=== PATIENT | female | born 1995 | race Caucasian/White ===

== ENCOUNTER 2018-12-04 21:10 | Outpatient (CLI) | payer OTHER ==
--- NOTE | 2018-12-04 23:26 | Ultrasound Report ---
Reason: TEST POSITIVE Procedure Date: 12/04/2018 Accession Number: [id number] / [id number] Procedure: US - OB First Trimester CPT Code: FULL RESULT: EXAM: FIRST TRIMESTER OBSTETRIC ULTRASOUND (Less than 11 weeks) EXAM DATE: 12/04/2018 09:37 PM. CLINICAL HISTORY: test positive. LMP: 10/06/2018, 8 weeks 3 days. COMPARISONS: None. TECHNIQUE: Transabdominal and transvaginal ultrasound examination with static image documentation. FINDINGS: Gestational Sac: No definite intrauterine or extrauterine seen. Tiny grossly 3 mm cystic focus within the endometrial canal is indeterminate for a very early gestational sac versus minimal fluid. No yolk sac or pole seen. Placenta: Not visible at this gestational age. Amniotic fluid: Not accurately assessed at this gestational age. Uterus: Unremarkable anteverted appearance. Cervix: Unremarkable. Right Ovary: Volume 4 cc. Normal echotexture and blood flow. Left Ovary: Volume 8 cc. Normal echotexture and blood flow. Free Fluid: None. Other: None. IMPRESSION: No intrauterine or extrauterine seen. Clinical and ultrasound follow-up suggested to ensure viability of and to entirely exclude ectopic. RADIA
== END 2018-12-04 21:11 | disposition home or self-care (01) ==
LOC: DI 21:10
PROVIDERS: ATTEND Nurse Practitioner Obstetrics & Gynecology
DX: Z32.01 Encounter for pregnancy test, result positive (principal); O46.91 Antepartum hemorrhage, unspecified, first trimester
CPT/HCPCS: 36415; 76801; 76817; 84702; 86900; 86901

== ENCOUNTER 2018-12-04 22:13 | Outpatient (CLI) | payer OTHER | END 2018-12-04 22:14 | disposition home or self-care (01) | LOC: LAB 22:13 | PROVIDERS: ATTEND Obstetrics & Gynecology | DX: O46.91 Antepartum hemorrhage, unspecified, first trimester (principal) | CPT/HCPCS: 36415; 84702; 86900; 86901 ==

== ENCOUNTER 2018-12-06 14:39 | Outpatient (CLI) | payer OTHER | END 2018-12-06 14:40 | disposition home or self-care (01) | LOC: LAB 14:39 | PROVIDERS: ATTEND Obstetrics & Gynecology | DX: O46.91 Antepartum hemorrhage, unspecified, first trimester (principal) | CPT/HCPCS: 36415; 84702 ==

== ENCOUNTER 2018-12-12 09:29 | Outpatient (CLI) | payer OTHER | END 2018-12-12 09:30 | disposition home or self-care (01) | LOC: LAB 09:29 | PROVIDERS: ATTEND Obstetrics & Gynecology | DX: O02.1 Missed abortion (principal) | CPT/HCPCS: 36415; 84702 ==

== ENCOUNTER 2019-02-26 18:50 | Outpatient (CLI) | payer OTHER ==
--- NOTE | 2019-02-27 12:13 | Ultrasound Report ---
Reason: TEST POSITIVE Procedure Date: 02/26/2019 Accession Number: [id number] / [id number] Procedure: US - OB First Trimester CPT Code: FULL RESULT: EXAM: FIRST TRIMESTER OBSTETRIC ULTRASOUND (Less than 11 weeks) EXAM DATE: 02/26/2019 06:57 PM. CLINICAL HISTORY: test positive. LMP: 01/12/2019. COMPARISONS: OB FIRST TRIMESTER 12/04/2018 9:37 PM. TECHNIQUE: Transabdominal and transvaginal ultrasound examination with static image documentation. CLINICAL DATES: EGA 6 weeks 3 days with BENITO 10/19/2019 based on LMP of 01/12/2019. ASSESSMENT: Gestational Sac: Single intrauterine. Mean gestational sac diameter: 7.3 mm = 5 weeks 3 days with an BENITO of 10/26/2019. Embryo: None detected. Cardiac activity: None detected. Yolk sac: 2.2 mm. Amniotic fluid: Not applicable. Early placenta: Not applicable. Other: No perigestational fluid collection demonstrated. MATERNAL STRUCTURES: Uterus: Anteverted. Unremarkable. Cervix: Closed. Right Ovary/Adnexa: The ovary measures 3.8 x 1.6 x 2.2 cm, volume 7 cc. 1.6 x 1.9 x 1.4 Cm complex right ovarian cyst with debris and mild peripheral flow. No mural nodules or thickened septations. Left Ovary/Adnexa: The ovary measures 4.0 x 1.6 x 1.6 cm, volume 5.3 cc. Unremarkable. Free Fluid: None. Other: None. IMPRESSION: 1. Single early intrauterine at EGA 5 weeks 3 days with BENITO 10/26/2019 based on mean sac diameter, which is concordant with clinical dates. Yolk sac identified. No pole seen. 2. Assigned dating is BENITO 10/19/2019 based on LMP. 3. No complications such as a subchorionic hemorrhage or adnexal mass lesion. 1.6 cm right ovarian corpus luteum. Otherwise, both ovaries and adnexa are normal. RADIA
== END 2019-02-26 18:51 | disposition home or self-care (01) ==
LOC: DI 18:50
PROVIDERS: ATTEND Obstetrics & Gynecology
DX: Z32.01 Encounter for pregnancy test, result positive (principal)
CPT/HCPCS: 76801; 76817

== ENCOUNTER 2019-03-04 18:48 | Outpatient (CLI) | payer OTHER | END 2019-03-04 18:49 | disposition home or self-care (01) | LOC: LAB 18:48 | PROVIDERS: ATTEND Obstetrics & Gynecology | DX: Z32.01 Encounter for pregnancy test, result positive (principal) | CPT/HCPCS: 84702 ==

== ENCOUNTER 2019-03-11 19:21 | Outpatient (CLI) | payer OTHER ==
--- NOTE | 2019-03-13 08:26 | Ultrasound Report ---
Reason: TEST POSITIVE Procedure Date: 03/11/2019 Accession Number: [id number] / [id number] Procedure: US - OB Transvaginal CPT Code: FULL RESULT: EXAM: FIRST TRIMESTER OBSTETRIC ULTRASOUND (Less than 11 weeks) EXAM DATE: 03/11/2019 07:59 PM. CLINICAL HISTORY: test positive. No pole identified on initial first trimester ultrasound. LMP: 01/12/2019. COMPARISONS: OB FIRST TRIMESTER 02/26/2019 6:57 PM. TECHNIQUE: Transabdominal and transvaginal ultrasound examination with static image documentation. CLINICAL DATES: EGA 7 weeks 2 days with BENITO 10/26/2019 based on prior ultrasound. ASSESSMENT: Gestational Sac: Single intrauterine. Mean gestational sac diameter: 23 mm = 7 weeks 2 days. Embryo: CRL (crown-rump length) 11 mm = 7 weeks 1 day. Cardiac activity: 143 beats per minute. Yolk sac: 6 mm. Amniotic fluid: Not accurately assessed at this gestational age. Early placenta: Not visible at this gestational age. Other: The perigestational fluid collection superior to the gestational sac is measured at 1.9 x 0.3 cm with a separate perigestational fluid collection inferior to the gestational sac measuring 0.9 x 0.4 cm. MATERNAL STRUCTURES: Uterus: Anteverted. Unremarkable. Cervix: Closed. Right Ovary/Adnexa: The ovary measures 3.6 x 1.8 x 2.8 cm, volume 9.4 cc. Corpus luteum is identified, 2.3 x 1.4 x 1.7 cm. Left Ovary/Adnexa: The ovary measures 2.9 x 1.5 x 2.6 cm, volume 5.6 cc. Unremarkable. Free Fluid: None. Other: None. IMPRESSION: 1. Single viable intrauterine at EGA 7 weeks 1 day with BENITO 10/27/2019 based on crown-rump length, which is discordant with LMP. 2. Assigned dating is BENITO 7 weeks 1 day based on current ultrasound. 3. Perigestational fluid collections, as described. RADIA
--- NOTE | 2019-03-13 08:38 | Ultrasound Report ---
Reason: TEST POSITIVE Procedure Date: 03/11/2019 Accession Number: [id number] / [id number] Procedure: US - OB First Trimester CPT Code: FULL RESULT: This report: ( acc # [id number]) please link report with acc # [id number]
== END 2019-03-11 19:22 | disposition home or self-care (01) ==
LOC: DI 19:21
PROVIDERS: ATTEND Obstetrics & Gynecology
DX: Z32.01 Encounter for pregnancy test, result positive (principal)
CPT/HCPCS: 76801; 76817

== ENCOUNTER 2019-03-12 14:03 | Outpatient (CLI) | payer OTHER ==
[2019-03-12 14:35] LABS: BASOPHILS % (AUTO) 0.4 %; EOSINOPHILS # (AUTO) 0.1 10^3/uL (0.0-0.7); EOSINOPHILS % (AUTO) 1.6 %; HGB - HEMOGLOBIN 13.1 g/dL (12.0-16.0); LYMPHOCYTES # (AUTO) 3.3 10^3/uL (1.5-3.5); LYMPHOCYTES % (AUTO) 36.6 %; MEAN CORPUSCULAR HEMOGLOBIN 28.1 pg (27.0-31.0); MEAN CORPUSCULAR VOLUME 82.4 fL (81.0-99.0); MEAN PLATELET VOLUME 9.2 fL (7.9-10.8); MONOCYTES # (AUTO) 0.7 10^3/uL (0.0-1.0); MONOCYTES % (AUTO) 7.7 %; NEUTROPHILS # (AUTO) 4.8 10^3/uL (1.5-6.6); NEUTROPHILS % (AUTO) 53.5 %; PLT - PLATELET COUNT 269 10^3/uL (130-450); RED BLOOD COUNT 4.67 10^6/uL (4.20-5.40); RED CELL DISTRIBUTION WIDTH 13.1 % (12.0-15.0); WHITE BLOOD COUNT 8.9 x10^3/uL (4.8-10.8)
[2019-03-13 08:37] LABS: HEPATITIS B SURFACE ANTIGEN NON-REACTIVE (NON-REACTIVE)
[2019-03-13 10:41] LABS: HIV AG/AB 4TH GEN NON-REACTIVE (NON-REACTIVE)
== END 2019-03-12 14:04 | disposition home or self-care (01) ==
LOC: LAB 14:03
PROVIDERS: ATTEND Nurse Practitioner Obstetrics & Gynecology
DX: Z36.89 Encounter for other specified antenatal screening (principal)
CPT/HCPCS: 36415; 81599; 85025; 85610; 86762; 86850; 86900; 86901; 87340; 87389

== ENCOUNTER 2019-03-12 15:00 | Outpatient (CLI) | payer OTHER ==
[2019-03-12 15:02] LABS: MUDS CUTOFF CONCENTRATIONS CUTOFF CONC BELOW:
[2019-03-12 15:52] LABS: AMPHETAMINE SCREEN,URINE NEGATIVE (NEGATIVE); BENZODIAZEPINES SCREEN, URINE NEGATIVE (NEGATIVE); COCAINE SCREEN URINE NEGATIVE (NEGATIVE); METHADONE SCREEN, URINE NEGATIVE (NEGATIVE); METHAMPHETAMINES SCREEN, URINE NEGATIVE (NEGATIVE); OPIATE SCREEN, URINE NEGATIVE (NEGATIVE); OXYCODONE SCREEN, URINE NEGATIVE (NEGATIVE); PROPOXYPHENE SCREEN, URINE NEGATIVE (NEGATIVE); TRICYCLIC ANTIDEPRESSANT,URINE NEGATIVE (NEGATIVE)
== END 2019-03-12 23:59 | disposition home or self-care (01) ==
LOC: LAB.R 15:00
PROVIDERS: ATTEND Nurse Practitioner Obstetrics & Gynecology
DX: Z36.89 Encounter for other specified antenatal screening (principal)
CPT/HCPCS: 80306

== ENCOUNTER 2019-05-07 16:26 | Outpatient (CLI) | payer OTHER | END 2019-05-07 16:27 | disposition home or self-care (01) | LOC: LAB 16:26 | PROVIDERS: ATTEND Nurse Practitioner Obstetrics & Gynecology | DX: Z36.89 Encounter for other specified antenatal screening (principal) | CPT/HCPCS: 36415; 81511; 81599 ==

== ENCOUNTER 2019-07-02 08:33 | Outpatient (CLI) | payer OTHER ==
--- NOTE | 2019-07-08 08:24 | Ultrasound Report ---
Reason: SCREENING, F/U TO FAS Procedure Date: 07/02/2019 Accession Number: [id number] / [id number] Procedure: US - OB F/U or Repeat CPT Code: Final Report FULL RESULT: EXAM: FOLLOW-UP OBSTETRICAL ULTRASOUND EXAM DATE: 07/02/2019 09:44 AM. CLINICAL HISTORY: SCREENING, F/U TO FAS. Nose lips, nuchal fold COMPARISON: OB F/U OR REPEAT 07/02/2019 8:42 AM OB DETAILED EVAL 05/31/2019 2:33 PM. TECHNIQUE: Real-time sonographic evaluation of the fetus performed by the liberal arts dean. Additional transvaginal imaging to more accurately evaluate cervical length/placental position/etc. Multiple customer operations representative static images were saved for review. DATING: Established EGA 24 weeks 3 days with BENITO 10/19/2019 based on LMP. EGA 23 weeks 2 days with BENITO 10/27/2019 based on ultrasound 03/11/2019. EGA 23 weeks 3 days with BENITO 10/26/2019 based on the current ultrasound. GENERAL EVALUATION Martinez . Cardiac activity: 165 bpm. movement: Visualized. Presentation: Breech Placenta: Posterior position. Amniotic fluid: Normal. ARAVIND cm. MVP cm. Cord origin is 1.6 cm from placental edge BIOMETRY Bi-Parietal Diameter (BPD): 5.4 cm, 22 weeks 3 days Head Circumference (HC): 21.3 cm, 23 weeks 3 days Abdominal Circumference (AC): 19.8 cm, 24 weeks 3 days Femur Length (FL): 4.1 cm, 23 weeks 3 days Estimated Weight: 634 g, 69.7 percentile for 23 weeks 2 days. ANATOMY face, nose lips, feet normal. Nuchal fold, open hands not evaluated IMPRESSION: 1. Martinez live intrauterine with gestational age 23 weeks 2 days based on 03/11/2019 ultrasound. 2. Estimated weight is within expected limits for assigned dating. 3. face, nose lips, feet normal. Nuchal fold, open hands not evaluated RADIA
== END 2019-07-02 08:34 | disposition home or self-care (01) ==
LOC: DI 08:33
PROVIDERS: ATTEND Nurse Practitioner Obstetrics & Gynecology
DX: Z36.89 Encounter for other specified antenatal screening (principal)
CPT/HCPCS: 76816

== ENCOUNTER 2019-07-29 17:10 | Outpatient (CLI) | payer OTHER | END 2019-07-29 17:11 | disposition home or self-care (01) | LOC: LAB 17:10 | PROVIDERS: ATTEND Nurse Practitioner Obstetrics & Gynecology | DX: Z36.89 Encounter for other specified antenatal screening (principal) | CPT/HCPCS: 36415; 82950 ==

== ENCOUNTER 2019-08-09 08:04 | Outpatient (CLI) | payer OTHER | END 2019-08-09 08:05 | disposition home or self-care (01) | LOC: LAB 08:04 | PROVIDERS: ATTEND Nurse Practitioner Obstetrics & Gynecology | DX: O99.810 Abnormal glucose complicating pregnancy (principal); Z3A.00 Weeks of gestation of pregnancy not specified | CPT/HCPCS: 36415; 82951; 82952 ==

== ENCOUNTER 2019-08-09 12:28 | Outpatient (CLI) | payer OTHER ==
--- NOTE | 2019-08-12 14:19 | Ultrasound Report ---
Reason: SUPERVISION OF , SCREENING Procedure Date: 08/09/2019 Accession Number: [id number] / [id number] Procedure: US - OB F/U or Repeat CPT Code: Final Report FULL RESULT: EXAM: FOLLOW-UP OBSTETRICAL ULTRASOUND. EXAM DATE: 08/09/2019 02:08 PM. CLINICAL HISTORY: Supervision of , screening. COMPARISON: OB F/U OR REPEAT 07/02/2019 8:42 AM. TECHNIQUE: Real-time sonographic evaluation of the fetus performed by the rubber production machine operator. Multiple parts sales representative static images were saved for review. DATING: Established EGA 28 weeks 5 days with BENITO 10/27/2019 based on working due date. GENERAL EVALUATION Martinez . Cardiac activity: 132 bpm. movement: Visualized. Presentation: Breech. Placenta: Posterior position. Amniotic fluid: Normal. ARAVIND 13 cm. MVP 4.5 cm. ANATOMY Nuchal fold is not evaluated at this gestational age. MATERNAL STRUCTURES Cervix is not well seen on this examination, previously noted to be normal. IMPRESSION: 1. Martinez live intrauterine with gestational age 28 weeks 5 days based on working due date. 2. hands are not well seen. RADIA
== END 2019-08-09 12:29 | disposition home or self-care (01) ==
LOC: DI 12:28
PROVIDERS: ATTEND Nurse Practitioner Obstetrics & Gynecology
DX: Z34.92 Encounter for supervision of normal pregnancy, unspecified, second trimester (principal); Z36.89 Encounter for other specified antenatal screening; O99.810 Abnormal glucose complicating pregnancy; Z3A.28 28 weeks gestation of pregnancy
CPT/HCPCS: 36415; 76816; 82951; 82952

== ENCOUNTER 2019-10-01 08:00 | Outpatient (CLI) | payer OTHER ==
[2019-10-02 22:09] LABS: TRICHOMONAS VAGINALIS DNA NEGATIVE (NEGATIVE)
== END 2019-10-01 23:59 | disposition home or self-care (01) ==
LOC: LAB.R 08:00
PROVIDERS: ATTEND Nurse Practitioner Obstetrics & Gynecology
DX: Z36.85 Encounter for antenatal screening for Streptococcus B (principal); Z36.89 Encounter for other specified antenatal screening
CPT/HCPCS: 87491; 87591; 87661; 87797

== ENCOUNTER 2019-10-30 18:03 | Inpatient (IN) | payer OTHER ==
[2019-10-30] MEDS ORDERED: ONDANSETRON 4 MG/2 ML VIAL IVP PRN (18:08)
[2019-10-30] MEDS ORDERED: SODIUM CHLORIDE FLUSH 0.9% 10 ML SYRINGE IVP PRN (18:08)
[2019-10-30] MEDS: miSOPROStoL 100 MCG TABLET BC SCH (19:00)
[2019-10-30 19:20] LABS: BASOPHILS % (AUTO) 0.3 %; EOSINOPHILS # (AUTO) 0.1 10^3/uL (0.0-0.7); EOSINOPHILS % (AUTO) 0.5 %; HGB - HEMOGLOBIN 12.3 g/dL (12.0-16.0); LYMPHOCYTES # (AUTO) 2.9 10^3/uL (1.5-3.5); LYMPHOCYTES % (AUTO) 27.6 %; MEAN CORPUSCULAR HEMOGLOBIN 29.4 pg (27.0-31.0); MEAN CORPUSCULAR HGB CONC 34.7 g/dL (32.0-36.0); MEAN CORPUSCULAR VOLUME 84.7 fL (81.0-99.0); MEAN PLATELET VOLUME 11.4 fL (7.9-10.8); MONOCYTES # (AUTO) 0.7 10^3/uL (0.0-1.0); NEUTROPHILS # (AUTO) 6.6 10^3/uL (1.5-6.6); NEUTROPHILS % (AUTO) 64.3 %; PLT - PLATELET COUNT 184 10^3/uL (130-450); RED BLOOD COUNT 4.18 10^6/uL (4.20-5.40); RED CELL DISTRIBUTION WIDTH 14.1 % (12.0-15.0); WHITE BLOOD COUNT 10.3 x10^3/uL (4.8-10.8)
[2019-10-30] MEDS ORDERED: ZOLPIDEM 5 MG TABLET PO PRN (20:17)
[2019-10-31] MEDS ORDERED: SODIUM CHLORIDE FLUSH 0.9% 10 ML SYRINGE IVP SCH (01:00)
[2019-10-31] MEDS: miSOPROStoL 100 MCG TABLET BC SCH ×4 (01:05→14:13)
--- NOTE | 2019-10-31 07:11 | HISTORY & PHYSICAL EXAMINATION ---
Admit History - Visit Reason Visit Reason: Other - : 3 Parity: 0 Premature: 0 Ectopic: 0 : 2 Care: positive: [facility] Risk/History: positive: None Complications This : positive: None Smoking Status: Never smoker - Mother's Labs Mother's Blood Type: positive: O Mother's RH: positive: Positive GBS: positive: Group B Step Negative Rubella Status: positive: Immune Meds/Allgy - Allergies Allergies/Adverse Reactions: Allergies Allergy/AdvReac Type Severity Reaction Status Date / Time No Known Drug Allergies Allergy Verified 10/30/19 18:39 Review of Systems - Constitutional Constitutional: denies: Fever, Chills, Malaise - Eyes Eyes: denies: Blurred vision, Spots in vision, Dipolpia - Cardiovascular Cariovascular: reports: Edema. denies: Irregular heart rate, Palpitations, Chest pain - Respiratory Respiratory: denies: SOB at rest - Gastrointestinal Gastrointestinal: denies: Change in bowel habits - Integumentary Integumentary: denies: Rash, Pruritis - Neurological Neurological: denies: Headache Physical - Abdominal Exam Contraction Frequency (min/apart): 2-4 Contraction Intensity: positive: Mild Uterine Resting Tone: positive: Soft - Monitoring Heart Rate Baseline: 135 Strip Review: positive: Category I - Presentation Presentation: positive: Vertex - Vaginal Exam Membranes: positive: Membranes intact Dilation (in cm): 2-3 Effacement (%): 50 Station: positive: -3 Cervical Position: positive: Posterior - Speculum Exam Speculum Exam Performed: positive: No Plan for Labor - Plan For Labor I expect patient to be DC'd or transferred within 96 hours.: Yes Plan for Labor: 10/30/2019 HPI: Halina presents 10/30/2019 @ 1800 for elective induction of labor at 40.3wks gestation by 5.3wk U/S. She denies vaginal bleeding or leakage of fluid and reports +FM. She reports occasional cramping however nothing consistent or overly uncomfortable. She has been a patient of [facility] through the duration of her and her care has been consistent and her has remained uncomplicated. She will be placed in observation status on [facility] for pre-induction cervical ripening with misoprostol. Dating criteria: LMP 01/12/2019-unsure Initial U/S: 02/26/2019 @ 5.3wks gestation by ultrasound. Unsure LMP. Serial exams: agree OBHx: G1: 2017 termination at 8wks G2: 2019 SAB at 5wks Medications: PNV Allergies: Tide (critical) PMHx: no significant Surgical Hx: tonsillectomy (2001), D&C 2017 Social Hx: Never smoker. No ETOH or IVDA. active duty - Family Hx: depression - mother, father, sister; anxiety - mother, father; breast cancer - sister; uterine cancer - mother; PCOS - sister; HTN - mother labs: O pos/Rubella immune Gentic testing: Quad screen negative Glucola elevated 144- 3 hour GTT 88;131;105;98-WNL GBS & GC/CT NEG x 3 Immunizations: TDAP 07/30/2019 Ultrasounds: Initial U/S: 02/26/2019 @ 5.3wks gestation by ultrasound. Unsure LMP. FAS: WNL with the exception of poor visualization of face, nuchal fold, and feet, 3VC. Posterior placenta, no previa. Size c/w dating. F/u 07/02/2019 WNL - continued poor visualization of nuchal fold and open hands. 08/09/19 f/u WNL with continued poor visualization open hands - pt declines further f/u Physical Exam: Normocephalic, atraumatic Heart RRR w/o M/G/R Lungs CTAB Abdomen gravid, soft, nontender EFW 3200g SVE 2-3/50/-3, vertex. Intact membranes Contractions intermittent - inconsistent Bilateral LE's trace edema Assessment: 23yo @ 40.3wks gestation by 5.3wk U/S GBS neg Elective IOL Plan: Place in observation status on [facility] until active, SROM/AROM, epidural, initiation of pitocin Pre-induction cervical ripening with misoprostol 50mcg BC q 4 hours Continuous monitoring Jacuzzi PRN. Nitrous oxide. Epidural PRN. Anticipate
--- NOTE | 2019-10-31 07:28 | PROVIDER PROGRESS NOTE ---
Labor Progress Note - Uterine Monitoring Uterine Monitoring Mode: positive: External toco Contraction Frequency (min/apart): intermittent/inconsistent Contraction Intensity: positive: Mild Uterine Resting Tone: positive: Soft - Monitoring Monitor Mode: positive: External ultrasound Heart Rate Baseline: 135 Heart Rate Variability: positive: Moderate (6-25 bmp) Accelerations: positive: Present, 15x15 Decelerations: positive: None Strip Review: positive: Category I - Vaginal Exam Dilation (in cm): 2-3 Effacement (%): 50 Station: -3 Cervical Position: Posterior - Labor Progress Note Labor Progress Note/Additional Text: S: Able to sleep some during the night. Experiencing some lower abdominal cramping but overall denies significant discomfort. Mother in law supportive at the bedside. O: FHR baseline 135, moderate variability, + accels, no decels SVE 2-3/50/-3, vertex, posterior, intact membranes Contractions palpate mild, intermittent/inconsistent A: 23yo @ 40.4wks gestation by 5.3wk U/S FHR Category I GBS neg S/p 3 doses of 50mcg BC misoprostol P: Continue pre-induction cervical ripening with 50mcg BC misoprostol Continuous monitoring Jacuzzi PRN. Nitrous oxide PRN. Epidural per maternal request Anticipate . Hand-off to construction equipment mechanic helper physician @ 0800.
[2019-10-31] MEDS ORDERED: fentaNYL 250 MCG/5 ML VIAL IVP ONE (07:45)
[2019-10-31] MEDS ORDERED: ACETAMINOPHEN 1,000 MG/100 ML 100 ML IV ONE ×2 (07:45→20:44)
[2019-10-31] MEDS ORDERED: PROPOFOL 200 MG/20 ML VIAL IVP ONE (07:45)
[2019-10-31] MEDS ORDERED: DEXAMETHASONE 4 MG/ML VIAL IVP ONE (07:45)
[2019-10-31] MEDS ORDERED: ESMOLOL 100 MG/10 ML VIAL IVP ONE (07:45)
[2019-10-31] MEDS ORDERED: ONDANSETRON 4 MG/2 ML VIAL IVP ONE ×2 (07:45→19:02)
[2019-10-31] MEDS ORDERED: SUCCINYLCHOLINE 200 MG/10 ML VIAL IVP ONE (07:45)
[2019-10-31] MEDS ORDERED: ePHEDrine 50 MG/ML VIAL IVP ONE ×2 (07:45→19:02)
[2019-10-31] MEDS ORDERED: HYDROmorphone 1 MG/ML CARPUJECT IVP ONE (07:45)
[2019-10-31] MEDS ORDERED: MIDAZOLAM 2 MG/2 ML VIAL IVP ONE (07:45)
[2019-10-31] MEDS ORDERED: LACTATED RINGERS 500 ML IV ONE ×6 (11:36→17:38)
[2019-10-31] MEDS ORDERED: fentaNYL 100 MCG/2 ML VIAL IVP PRN (13:49)
[2019-10-31] MEDS ORDERED: LACTATED RINGERS 1,000 ML IV ONE ×4 (14:08→20:26)
[2019-10-31] MEDS ORDERED: ROPIVACAINE 0.2% 200 MG/100 ML BAG EP ONE (14:28)
--- NOTE | 2019-10-31 15:10 | ANESTHESIA ---
Pre-Anesthesia VS, & Labs - Diagnosis labor pain - Procedure Continuous labor epidural Vital Signs: Continuous labor epidural Height 5 ft 2 in Weight (kg) 88.451 kg - NPO Other - Is Patient ?: Yes - Lab Results Current Lab Results: Laboratory Tests 10/30/19 18:30: WBC 10.3, RBC 4.18 L, Hgb 12.3, Hct 35.4 L, MCV 84.7, MCH 29.4, MCHC 34.7, RDW 14.1, Plt Count 184, MPV 11.4 H, Neut # (Auto) 6.6, Lymph # (Auto) 2.9, Falls # (Auto) 0.7, Eos # (Auto) 0.1, Baso # (Auto) 0.0, Absolute Nucleated RBC 0.00, Nucleated RBC % 0.0 Lab results reviewed: Yes Fish Bones: 10/30/19 18:30 Home Medications and Allergies Active Medications Fentanyl (Fentanyl) 50 mcg IVP Q1HR PRN PRN Reason: PAIN Last Admin: 10/31/19 14:12 Dose: 50 mcg Misoprostol (Cytotec) 50 mcg BC Q4HR MARYCARMEN Last Admin: 10/31/19 14:13 Dose: Not Given Ondansetron HCl (Zofran Inj) 4 mg IVP Q4HR PRN PRN Reason: Nausea / Vomiting Sodium Chloride (Normal Saline Flush 0.9%) 10 ml IVP 0100,0900,1700 MARYCARMEN Sodium Chloride (Normal Saline Flush 0.9%) 10 ml IVP PRN PRN PRN Reason: NEEDED PER PROVIDER ORDERS Last Admin: 10/30/19 18:30 Dose: 10 ml Zolpidem Tartrate (Ambien) 5 mg PO QPM PRN PRN Reason: Insomnia Last Admin: 10/30/19 23:53 Dose: 5 mg Allergies/Adverse Reactions: Allergies Allergy/AdvReac Type Severity Reaction Status Date / Time No Known Drug Allergies Allergy Verified 10/30/19 18:39 Anes History & Medical History - Anesthetic History Anesthesia Complications: reports: No previous complications Family history of Anesthesia Complications: Denies Family history of Malignant Hyperthermia: Denies - Medical History Cardiovascular: reports: None Pulmonary: reports: None Gastrointestinal: reports: None Urinary: reports: None Neuro: reports: None Musculoskeletal: reports: None Endocrine/Autoimmune: reports: None Blood Disorders: reports: None Skin: reports: None Smoking Status: Never smoker Psychosocial: reports: No issues indicated - Obstetrical History : 3 Parity: 0 Events: positive: None Complications: positive: None Exam General: Oriented x3, Moderate distress Dental: WNL Mouth Opening: Greater than 4 Fingerbreadths Neck Mobility: Normal Mallampati classification: II Plan Anesthesia Type: Epidural Consent for Procedure(s) Verified and Reviewed: Yes Code Status: Attempt Resuscitation ASA classification: 2-Mild systemic disease Is this case an emergency?: Yes
[2019-10-31] MEDS ORDERED: ROPIVACAINE 0.2% 200 MG/100 ML BAG EP PRN (15:13)
[2019-10-31] MEDS ORDERED: NALOXONE 0.4 MG/ML VIAL IVP PRN (15:13)
[2019-10-31] MEDS ORDERED: NALBUPHINE 10 MG/ML AMP IVP PRN ×2 (15:13)
[2019-10-31] MEDS ORDERED: ONDANSETRON 4 MG/2 ML VIAL IVP PRN ×2 (15:13)
[2019-10-31] MEDS ORDERED: ePHEDrine 50 MG/ML VIAL IVP PRN (15:13)
[2019-10-31] MEDS ORDERED: METOCLOPRAMIDE 10 MG/2 ML VIAL IVP PRN (15:13)
[2019-10-31] MEDS ORDERED: diphenhydrAMINE INJ 50 MG/ML VIAL IVP PRN ×2 (15:13)
[2019-10-31] MEDS ORDERED: KETOROLAC 30 MG/ML VIAL IVP ONE (15:13)
--- NOTE | 2019-10-31 16:31 | PROVIDER PROGRESS NOTE ---
Labor Progress Note - Uterine Monitoring Uterine Monitoring Mode: positive: External toco : 2-3 Contraction Intensity: positive: Strong Uterine Resting Tone: positive: Soft - Monitoring Heart Rate Baseline: 155 Heart Rate Variability: positive: Minimal (0-5 bpm) Accelerations: positive: Present, 15x15 Decelerations: positive: Early Strip Review: positive: Category II - Vaginal Exam Dilation (in cm): 5 Effacement (%): 90 Station: -1 Cervical Position: Midposition - Labor Progress Note Labor Progress Note/Additional Text: Following her Epidural pt had repeditive late decelertions. she was given 500 ml bolos with O2 and position change. Lates have resolved. base line coming down. reactivity still lacking Probable relative hypovolemia. increase rate to 200 ml/hr.
[2019-10-31] MEDS ORDERED: LACTATED RINGERS 250 ML IV ONE ×2 (17:20→18:30)
[2019-10-31] MEDS ORDERED: SODIUM CHLORIDE FLUSH 0.9% 10 ML SYRINGE IVP PRN ×2 (17:28→20:51)
[2019-10-31] MEDS: LACTATED RINGERS 1,000 ML IV SCH ×2 (17:35→21:41)
[2019-10-31] MEDS ORDERED: LACTATED RINGERS 1,000 ML IV SCH ×2 (18:00→21:00)
[2019-10-31] MEDS ORDERED: CITRIC ACID/SODIUM CITRATE 15 ML UDC PO ONE (18:56)
[2019-10-31] MEDS ORDERED: ceFAZolin 3 GM in SODIUM CHLORIDE 0.9% 100ML 100 ML IV ONE (18:56)
[2019-10-31] MEDS ORDERED: LIDOCAINE-PF 2% 10 ML AMP SUBQ ONE (18:58)
[2019-10-31] MEDS ORDERED: BUPIVACAINE 0.5% PF 10 ML VIAL ONE (18:58)
[2019-10-31] MEDS ORDERED: METOPROLOL 5 MG/5 ML VIAL IVP ONE (19:02)
[2019-10-31] MEDS ORDERED: LABETALOL 5 MG/1 ML 20 ML MDV IV ONE (19:02)
[2019-10-31] MEDS ORDERED: LIDOCAINE-MPF 2% 5 ML VIAL IM ONE (19:02)
[2019-10-31] MEDS ORDERED: MORPHINE PF 5 MG/10 ML AMP EP ONE (19:02)
[2019-10-31] MEDS ORDERED: fentaNYL 100 MCG/2 ML VIAL IVP ONE (19:02)
[2019-10-31] MEDS ORDERED: LIDOCAINE 2%-EPI 1:100000 20 ML MDV SUBQ ONE (19:02)
[2019-10-31] MEDS ORDERED: LIDOCAINE-MPF 1% 30 ML VIAL ONE (20:07)
[2019-10-31] MEDS ORDERED: BUPIVACAINE 0.5% PF 30 ML VIAL ONE (20:07)
[2019-10-31] MEDS ORDERED: LIDOCAINE MPF 2%-EPI 1:200000 10 ML VIAL SUBQ ONE (20:08)
[2019-10-31] MEDS ORDERED: BUPIVACAINE 0.5% PF 30 ML VIAL SUBQ ONE (20:08)
[2019-10-31] MEDS ORDERED: LIDOCAINE-MPF 2% 5 ML VIAL ONE (20:11)
[2019-10-31] MEDS ORDERED: LIDOCAINE MPF 2%-EPI 1:200000 20 ML VIAL ONE (20:15)
[2019-10-31] MEDS ORDERED: diphenhydrAMINE 25 MG CAPSULE PO PRN (20:51)
--- NOTE | 2019-10-31 20:58 | OPERATIVE REPORT ---
Operative Report - General Admit Date: 10/31/19 Procedure Date: 10/31/19 Planned Procedure: SLTC/S Pre-Op Diagnosis: Distress with tachycardia Procedure Performed: SLTC/S Post Op Diagnosis: Distress with tachycardia - Procedure Note Primary Surgeon: Jesse Clemons MD Secondary Surgeon: Gay Topete MD Anesthesia Provider: Mook Keller CRNA Anesthesia Technique: Epidural IV Fluids (mL): 1,200 Estimated Blood Loss (mL): 700 Urine Output (mL): 100 Findings: Live Male Apgars 1/8, weight 8 lb 6 oz - Other Other Information/Narrative: [id number]
[2019-11-01] MEDS ORDERED: AMPICILLIN/SULBACTAM 3 GM in SODIUM CHLORIDE 0.9% MINIBAG 100 ML IV SCH ×2
[2019-11-01] MEDS ORDERED: SODIUM CHLORIDE FLUSH 0.9% 10 ML SYRINGE IVP SCH ×2 (01:00)
--- NOTE | 2019-11-01 02:02 | OPERATIVE REPORT ---
DATE OF SERVICE: 10/31/2019 Physician: Jesse Clemons MD PREOPERATIVE DIAGNOSIS: distress with tachycardia. POSTOPERATIVE DIAGNOSIS: distress with tachycardia. PROCEDURE PERFORMED: Emergency primary low transverse section. SURGEON: Jesse Clemons MD FARM MACHINERY MECHANIC: Gay Topete MD ACCREDITATION MANAGER: Mook Keller CRNA ANESTHETIC: Epidural. INTRAVENOUS FLUIDS: 1200 mL ESTIMATED BLOOD LOSS: 700 mL URINE OUTPUT: 100 mL FINDINGS: Live male with second stage meconium with Apgars 1 and 9, vertex presentation. DESCRIPTION OF PROCEDURE: Following adequate spinal anesthesia, patient was placed in the supine pos ition with a roll under the right hip. Briones catheter had already been placed. An expeditious timeo ut was performed at this time. At this point, a Pfannenstiel incision was carried down to the subcut aneous tissue to the fascia. The fascia was incised transversely then, using both blunt and sharp di ssection, it was freed from the rectus abdominis pyramidalis. The rectus was split along the midline , peritoneum entered. Care was taken to avoid any injury to bowel or bladder. At this point, the bl adder flap was developed, and a low transverse uterine incision was accomplished using a #10 blade an d bandage scissors. At this point, the head of the infant was deeply engaged in the pelvis and was l ifted out, rotated occiput anterior and then delivered. The oropharynx was bulb suctioned at this ti me. The cord was doubly clamped, divided, and the infant was handed to the cutter apprentice hand that was sta nding by. At this point, the cord blood samples were obtained. The placenta was manually delivered. The uterus was exteriorized, wrapped in a moist lap and cleansed at the internal portion with dry l ap. At this point, the uterine incision was closed using running locking suture of #0 Vicryl with an imbricating layer of #0 Vicryl. The cul-de-sac was suctioned clear of clot and then the estimated b lood was ascertained at this time. The cul-de-sac was irrigated. The uterus was delivered back in t he abdominal cavity. The gutters were likewise irrigated with copious amounts of sterile saline. No bleeding was noted from the incision, so the peritoneum was closed utilizing 2-0 Vicryl and the rect us was inspected. Electrocautery was used for hemostasis. The fascia was then closed using a runnin g suture of looped PDS. Subcutaneous tissue was irrigated. No bleeding was noted, so the fascia was reapproximated utilizing 2-0 Vicryl. The incision itself was closed using 4-0 Monocryl. The incisi on was then injected superiorly with 0.5% Marcaine. The wound was then dressed with a wound VAC. Th e patient tolerated the procedure well and was taken to Recovery in stable condition. TD: 10/31/2019 21:10
[2019-11-01] MEDS: KETOROLAC 30 MG/ML VIAL IVP SCH ×3 (03:01→15:03)
[2019-11-01 04:44] LABS: BASOPHILS % (AUTO) 0.3 %; EOSINOPHILS % (AUTO) 0.1 %; HGB - HEMOGLOBIN 11.3 g/dL (12.0-16.0); MEAN CORPUSCULAR HEMOGLOBIN 28.3 pg (27.0-31.0); MEAN CORPUSCULAR HGB CONC 33.6 g/dL (32.0-36.0); MEAN CORPUSCULAR VOLUME 84.2 fL (81.0-99.0); MEAN PLATELET VOLUME 11.1 fL (7.9-10.8); MONOCYTES # (AUTO) 0.9 10^3/uL (0.0-1.0); MONOCYTES % (AUTO) 6.5 %; NEUTROPHILS # (AUTO) 11.1 10^3/uL (1.5-6.6); NEUTROPHILS % (AUTO) 78.5 %; PLT - PLATELET COUNT 131 10^3/uL (130-450); RED BLOOD COUNT 3.99 10^6/uL (4.20-5.40); RED CELL DISTRIBUTION WIDTH 14.3 % (12.0-15.0); WHITE BLOOD COUNT 14.1 x10^3/uL (4.8-10.8)
[2019-11-01] MEDS: ACETAMINOPHEN 500 MG TABLET PO SCH ×3 (05:09→21:07)
[2019-11-01] MEDS: AMPICILLIN/SULBACTAM 3 GM in SODIUM CHLORIDE 0.9% MINIBAG 100 ML IV SCH ×5 (05:37→18:33)
--- NOTE | 2019-11-01 08:24 | PROVIDER PROGRESS NOTE ---
Subjective - General Admit Date: 10/31/19 Procedure Date: 10/31/19 Post Op Days: 1 Procedure Performed: EPLTC/S - Review of Systems Wound/Incisions: positive: Dressing dry and intact General: positive: No symptoms (Pain 2-6/10) Gastrointestinal: negative: Flatus Musculoskeletal: positive: No symptoms Skin: positive: No symptoms Objective - Patient Data Reviewed Vital Signs: Yes Vital Signs: Vital Signs x48h Temp Pulse Resp BP Pulse Ox 11/01/19 04:15 36.9 C 83 18 113/51 L 100 Weight: Weight 10/30/19 10/31/19 11/01/19 23:59 23:59 23:59 Weight (kg) 88.451 kg Intake & Output: Intake and Output Totals x24h 10/30/19 10/31/19 11/01/19 23:59 23:59 23:59 Intake Total 3900 200 Output Total 420 375 Balance 3480 -175 - Lab Results Lab Results: 11/01/19 04:30 Other Lab Results: Lab Results x24hrs 11/01/19 Range/Units 04:30 WBC 14.1 H (4.8-10.8) x10^3/uL RBC 3.99 L (4.20-5.40) 10^6/uL Hgb 11.3 L (12.0-16.0) g/dL Hct 33.6 L (37.0-47.0) % MCV 84.2 (81.0-99.0) fL MCH 28.3 (27.0-31.0) pg MCHC 33.6 (32.0-36.0) g/dL RDW 14.3 (12.0-15.0) % Plt Count 131 (130-450) 10^3/uL MPV 11.1 H (7.9-10.8) fL Neut # (Auto) 11.1 H (1.5-6.6) 10^3/uL Lymph # (Auto) 2.0 (1.5-3.5) 10^3/uL Carlton # (Auto) 0.9 (0.0-1.0) 10^3/uL Eos # (Auto) 0.0 (0.0-0.7) 10^3/uL Baso # (Auto) 0.0 (0.0-0.1) 10^3/uL Absolute Nucleated RBC 0.00 x10^3/uL Nucleated RBC % 0.0 /100WBC - Current Medications Current Medications: Current Medications Generic Name Dose Route Start Last Admin Trade Name Kadeq PRN Reason Stop Dose Admin Acetaminophen 1,000 mg 10/31/19 21:00 11/01/19 05:09 Tylenol PO 1,000 mg Q8H MARYCARMEN Administration Fentanyl 50 mcg 10/31/19 13:49 10/31/19 14:12 Fentanyl IVP 50 mcg Q1HR PRN Administration PAIN Ampicillin Sodium/Sulbactam 100 mls @ 200 mls/hr 11/01/19 00:00 11/01/19 06:16 Sodium 3 gm/ Sodium Chloride IV Infused Q6HR MARYCARMEN Infusion Ketorolac Tromethamine 30 mg 10/31/19 21:00 11/01/19 03:01 Toradol Inj (30mg) IVP 11/01/19 15:01 30 mg Q6H MARYCARMEN Administration Misoprostol 50 mcg 10/30/19 19:00 10/31/19 14:13 Cytotec BC Not Given Q4HR MARYCARMEN Sodium Chloride 10 ml 10/30/19 18:08 10/30/19 18:30 Normal Saline Flush 0.9% IVP 10 ml PRN PRN Administration NEEDED PER PROVIDER ORDERS Zolpidem Tartrate 5 mg 10/30/19 20:17 10/30/19 23:53 Ambien PO 5 mg QPM PRN Administration Insomnia - Physical Exam Wound/Incisions: positive: Dressing dry and intact General Appearance: positive: No acute distress, Alert Respiratory: positive: Chest non-tender, No respiratory distress, Breath sounds nml Cardiovascular: positive: Regular rate & rhythm, No murmur, No gallop Abdomen: positive: Tenderness, Mass (u-1) Extremities: negative: Calf tenderness, Tyson's sign/cords Neurologic/Psychiatric: positive: Oriented x3 Impression/Plan - Problem List Problem List: 1) POD #1 progressing 2) endomyometritis on Unasyn temp deffervessing 3)
[2019-11-01] MEDS: SIMETHICONE CHEW 80 MG TABLET PO SCH ×4 (09:05→21:07)
[2019-11-01] MEDS: oxyCODONE 5 MG TABLET PO PRN ×4 (09:05→21:06)
[2019-11-01] MEDS: DOCUSATE SODIUM 100 MG CAPSULE PO SCH ×2 (09:05→21:07)
[2019-11-01] MEDS: IBUPROFEN 600 MG TABLET PO SCH (21:07)
[2019-11-02] MEDS: ACETAMINOPHEN 500 MG TABLET PO SCH ×3 (04:36→21:02)
[2019-11-02] MEDS: IBUPROFEN 600 MG TABLET PO SCH ×3 (04:36→20:15)
[2019-11-02] MEDS: oxyCODONE 5 MG TABLET PO PRN ×4 (04:36→20:15)
[2019-11-02] MEDS: DOCUSATE SODIUM 100 MG CAPSULE PO SCH ×3 (08:33→21:02)
--- NOTE | 2019-11-02 13:07 | PROVIDER PROGRESS NOTE ---
Subjective - Prog Note Date Prog Note Date: 11/02/19 Prog Note Time: 13:05 - Subjective Subjective: Overall, doing well. Baby to remain in-patient for observation 2/2 chorio. BF going well. Up and ambulating. Tolerating po. Pain well managed if given on schedule. Voiding. No complaints other than bilateral LE edema; requesting RICK bloom Objective - Vital Signs/Intake & Output Vital Signs: Vital Signs x48h Temp Pulse Resp BP Pulse Ox 11/02/19 12:48 98.2 F 110 H 16 110/68 100 11/02/19 08:13 98.2 F 90 16 116/64 100 Intake & Output: Intake & Output 10/30/19 10/31/19 11/01/19 11/02/19 23:59 23:59 23:59 23:59 Intake Total 3900 1220 Output Total 420 1300 Balance 3480 -80 - Objective General Appearance: positive: No acute distress Neck: positive: Nml inspection Respiratory: positive: No respiratory distress Abdomen: positive: Other (appropriately tender, mild distention. Wound vac in place) Skin: positive: Color nml Extremities: positive: Pedal edema (BLE edema, non-tender and no induration) Neurologic/Psychiatric: positive: Oriented x3 - Lab Results Fish Bones: 11/01/19 04:30 Assessment/Plan - Problem List (1) delivery delivered Impression: POD#2 s/p -Completed 24 hours of antibiotics for in setting of chorio -Remains afebrile -OK to DC heplock Routine post op care -Encourage ambulation -Voiding -Tolerating po -Pain managed with po meds Will order RICK bloom Anticipate DC home tomorrow
[2019-11-02] MEDS: SIMETHICONE CHEW 80 MG TABLET PO SCH ×2 (16:35→21:02)
[2019-11-03] MEDS: oxyCODONE 5 MG TABLET PO PRN ×2 (02:15→08:18)
[2019-11-03] MEDS: IBUPROFEN 600 MG TABLET PO SCH ×2 (02:15→08:18)
[2019-11-03] MEDS: DOCUSATE SODIUM 100 MG CAPSULE PO SCH (08:18)
[2019-11-03 08:54] VITALS: BP 116/67
--- NOTE | 2019-11-03 12:23 | PROVIDER PROGRESS NOTE ---
Subjective - Prog Note Date Prog Note Date: 11/03/19 Prog Note Time: 10:00 - Subjective Pt reports feeling: Improved Subjective: Patient is doing well. Pain well managed. Up and ambulating. Tolerating po. Voiding. Baby cleared for discharge. BF going well. Objective - Vital Signs/Intake & Output Vital Signs: Vital Signs x48h Temp Pulse Resp BP Pulse Ox 11/03/19 08:00 98.2 F 89 16 116/67 100 Intake & Output: Intake & Output 10/31/19 11/01/19 11/02/19 11/03/19 23:59 23:59 23:59 23:59 Intake Total 3900 1220 Output Total 420 1300 Balance 3480 -80 - Lab Results Fish Bones: 11/01/19 04:30 Assessment/Plan - Problem List (1) delivery delivered Impression: Doing well Meeting goals for discharge Routine discharge instructions given DC to home
--- NOTE | 2019-11-03 13:20 | Labor Flowsheet ---
Labor Flowsheet Datetime Report Generated by CPN: 11/03/2019 13:20 Datetime: 11/03/2019 07:53 VITAL SIGNS NBP Sys/Jamia/Mean (mmHg): 116 : 67 : 78 Pulse: 95 LaborFlag: Labor Datetime: 11/02/2019 16:25 SpO2 (%): 100 Datetime: 10/31/2019 18:57 UTERINE ACTIVITY Monitor Mode: External Frequency (min): 2-3 Quality: Moderate Duration (sec): 60+ Pattern: Normal: <= 5 Contractions in 10 Minutes Resting Tone (Palpate): Relaxed Contraction Comments: palpating contractions ASSESSMENT A Monitor Mode: Internal Scalp Electrode FHR Baseline Changes: No Baseline Change Accelerations: None Decelerations: Early; Late Category: Category II Comments: min-mod, unable to tell if decels are earlys or lates. Pt. to be taken to OR. STAT. Communication Comments: Taken to OR Datetime: 10/31/2019 18:45 FHR Baseline Rate : 170 Datetime: 10/31/2019 18:43 COMMUNICATION Communication: RN at Bedside Datetime: 10/31/2019 18:31 Medication Comments: LR bolus started Datetime: 10/31/2019 18:30 Monitor Interventions for FHR: FSE Applied Datetime: 10/31/2019 18:25 Actions for Decelerations: Side to Side; Oxygen Applied PATIENT CARE Oxygen Method: Non-Rebreather Datetime: 10/31/2019 18:22 VAGINAL EXAM Dilatation (cm): 7.0 Effacement (%): 100 Station: 0 Exam by: Dr. Clemons Membrane Status: Ruptured Membranes Rupture Method: Artificial Amniotic Fluid Color: Clear Amniotic Fluid Amount: Scant Amniotic Fluid Odor: None Datetime: 10/31/2019 18:00 Variability: Moderate 6-25 bpm Datetime: 10/31/2019 17:45 Provider Reviewed Strip: Yes Datetime: 10/31/2019 17:15 Patient Care Comments: only 50ml UOP, MD aware. order from MD for bolus. Datetime: 10/31/2019 17:13 Pain Presence: None/Denies Anesthesia Level Check: T10- Umbilicus Datetime: 10/31/2019 16:26 Patient Position/Activity: Right Extreme Datetime: 10/31/2019 15:34 Cervix, Position: Midposition Datetime: 10/31/2019 15:14 I/O Interventions: Briones Cath Inserted Datetime: 10/31/2019 14:49 Anesthesia Comments: Right tilt Datetime: 10/31/2019 14:42 ANESTHESIA Epidural Procedure: Test Dose Datetime: 10/31/2019 14:32 PROCEDURE TIME OUT Procedure Verify: Correct Patient Identity; Correct Side and Site are Marked; Accurate Procedure Co nsent Form; Agreement on Procedure to be Done; Correct Patient Position Datetime: 10/31/2019 14:19 Temperature (C): 37.4 Datetime: 10/31/2019 14:02 Vaginal Exam Comments: head at 0 station Datetime: 10/31/2019 13:59 MEDICATIONS Analgesics/Sedatives: Fentanyl (mcg) @ 50 Datetime: 10/31/2019 12:42 PAIN Pain Scale: 3 Pain Assessment Comments: "nitros is helping a little bit" Datetime: 10/31/2019 12:19 Notification Reason: Status Update; Labor Status; Pain Datetime: 10/31/2019 11:49 Pain Type: Cramping Pain Location: Abdomen Datetime: 10/31/2019 11:45 Monitor Interventions for UA: [place] Adjusted Datetime: 10/31/2019 11:19 Pain Goal: 5 Datetime: 10/31/2019 09:07 Cervical Ripening Agents: Cytotec @ 50 Datetime: 10/31/2019 07:56 Pain Relief Measures: Comfort Measures Pain Coping: Breathing Through Contractions Vaginal Bleeding: None MATERNAL ASSESSMENT Level of Consciousness: Fully Conscious DTR's/Clonus: DTRs 2+ Headache: Denies Breath Sounds, Left: Clear and Equal Breath Sounds, Right: Clear and Equal Nausea/Vomiting: Denies RUQ Epigastric Pain: Denies Comfort Measures: Breathing/Relaxation Pain Management: Pain Scale/Goals; Comfort Measures Medications: Cervical Ripening Related: Common Discomforts of ; Hydration Datetime: 10/30/2019 23:59 Plan of Care: Plan of Care Discussed; Induction Datetime: 10/30/2019 20:53 Membranes Ruptured Date/Time: 10/31/2019 18:30 Datetime: 10/30/2019 20:03 TEACHING Instructional Method: Verbal; Patient Instructed; Family/Support Person Instructed; Verbalized Unde jessica
--- NOTE | 2019-11-19 14:17 | DISCHARGE SUMMARY ---
"Discharge Summary Admit Date: 10/30/19 Discharge Date: 11/03/19 Discharging Provider: Anshu Condition at Discharge: Good Discharge Disposition: 01 Home, Self Care Discharge Facility Name: [facility] - DIAGNOSES Admission Diagnoses: IUP at 40+3 wga Elective induction of labor Discharge Diagnoses with Status of Each Condition: Same and delivery of term gestation via Chorioamnionitis - HPI History of Present Illness: Patient is a 24-year-old G1, P0 admitted at 40+3 weeks estimated gestational age for elective induction of labor. has been uncomplicated. Blood type is O+ and patient is Rubella. GBS negative.Initial cervical exam is 2 to 3 cm/50/-3 station. - CONSULTS | PROCEDURES Procedures: Primary low transverse . Delivering provider is Dr. Clemons on 10/31/19 - HOSPITAL COURSE Hospital Course: Patient is a 24-year-old G1 now P1 admitted at 40+3 weeks estimated gestational age for elective induction of labor. had been uncomplicated. She was GBS negative, blood type is O+, rubella immune. She was admitted at 2 to 3 cm dilation with 50% effacement and -3 station. She was started with cervical ripening using misoprostol 50 mcg buccal. She underwent artificial rupture of membranes with passage of meconium stained fluid. She received an epidural for pain management. During the course of her labor she developed a febrile temperatures with a T-max of 104.9 with maternal and tachycardia. Shortly after placement of her epidural, she showed recurrent late decelerations on her external monitoring. The decision was made to proceed with primary C- section given that she was remote from delivery. Procedure was uncomplicated. She delivered a male infant with Apgars of 1 and 9. Delivery weight was 3794 g. She received Unasyn for chorioamnionitis and this was continued for 24 hours postdelivery. course was uncomplicated. Breast-feeding was going well. Baby was observed in-house for 2 days postdelivery. By day #3, she was meet ing goals for discharge and was discharged home with a wound VAC in place.Of note, she did not have a wound complication. Is standard practice for the delivering provider to use a wound VAC for deliveries. - ALLERGIES Allergies/Adverse Reactions: Allergies Allergy/AdvReac Type Severity Reaction Status Date / Time No Known Drug Allergies Allergy Unverified 10/31/19 20:17 - LABS Result Diagrams: 11/01/19 04:30 - FOLLOW UP Follow Up: [address] Clemons for wound check - TIME SPENT Time Spent in Discharge (Minutes): 30"
--- NOTE | 2019-11-26 13:39 | OPERATIVE REPORT ---
Operative Report - General Admit Date: 10/31/19 Procedure Date: 10/31/19 Pre-Op Diagnosis: tachycardia Procedure Performed: Section Post Op Diagnosis: same - Procedure Note Primary Surgeon: MD Ian - Other Other Information/Narrative: I acted as a first sampler to the surgeon and did not independently act as a surgeon.
--- NOTE | 2019-12-06 17:00 | PROVIDER PROGRESS NOTE ---
Labor Progress Note - Labor Progress Note Labor Progress Note/Additional Text: Late entry. 10/31/2019 18;22 AROM.
== END 2019-11-03 12:20 | disposition home or self-care (01) | DRG 786 ==
LOC: WFO 18:03 → FBP 18:04 → WFO 18:07 → FBP 18:08 → OBSVTOIN 10-31 17:28
PROVIDERS: ADMIT Obstetrics & Gynecology; ATTEND Obstetrics & Gynecology
PROC: 10907ZC Drainage of Amniotic Fluid, Therapeutic from Products of Conception, Via Natural or Artificial Opening (ICD-10-PCS; 2019-10-31)
PROC: 10D00Z1 Extraction of Products of Conception, Low, Open Approach (ICD-10-PCS; principal; 2019-10-31 19:00)
DX: O48.0 Post-term pregnancy (principal); O41.1230 Chorioamnionitis, third trimester, not applicable or unspecified; Z37.0 Single live birth; O77.0 Labor and delivery complicated by meconium in amniotic fluid; O76 Abnormality in fetal heart rate and rhythm complicating labor and delivery; Z3A.40 40 weeks gestation of pregnancy
CPT/HCPCS: 36415; 85025; A9270; G0378; J0131; J0330; J1170; J3010; J3410; J7120

== ENCOUNTER 2020-05-07 07:00 | Outpatient (CLI) | payer OTHER | END 2020-05-07 23:59 | disposition home or self-care (01) | LOC: LAB.R 07:00 | PROVIDERS: ATTEND Family Medicine | DX: J02.9 Acute pharyngitis, unspecified (principal) | CPT/HCPCS: 87070 ==

== ENCOUNTER 2022-06-14 08:00 | Outpatient (CLI) | payer OTHER ==
[2022-06-14 18:01] LABS: BILIRUBIN,URINE NEGATIVE (NEGATIVE); GLUCOSE, URINE (UA) NEGATIVE (NEGATIVE); KETONES,URINE (UA) NEGATIVE (NEGATIVE); LEUKOCYTE ESTERASE, URINE LARGE (NEGATIVE); NITRITE,URINE POSITIVE (NEGATIVE); OCCULT BLOOD,URINE LARGE (NEGATIVE); PROTEIN,URINE >=300 mg/dL (NEGATIVE); UROBILINOGEN,URINE 1 (NORMAL) E.U./dL (NORMAL)
[2022-06-14 18:21] LABS: BACTERIA,URINE Many /HPF (None Seen); CLARITY,URINE HAZY (CLEAR); SQUAMOUS EPITHELIAL CELL,UR FEW Squamous (<= Few); WBC,URINE >25 /HPF (0-5)
== END 2022-06-14 23:59 | disposition home or self-care (01) ==
LOC: LAB.N 08:00
PROVIDERS: ATTEND Emergency Medicine
DX: N39.0 Urinary tract infection, site not specified (principal)
CPT/HCPCS: 81001; 87086; 87181